=== PATIENT | male | born 1965 | race Caucasian/White ===

== ENCOUNTER → 2024-09-19 | Day surgery (SDC) | payer MEDICARE ==
[2024-09-12 09:35] LABS: BASOPHILS % 0.6 % (0.0-1.0); EOSINOPHILS % 3.2 % (0.0-6.0); LYMPHOCYTES % 17.1 % (18.0-39.1); MONOCYTES % 7.3 % (4.4-11.3); NEUTROPHILS % 71.6 % (38.7-80.0); RED CELL DISTRIBUTION WIDTH 13.2 % (11.7-14.4)
[~2024-09-19] MED LIST: AMIODARONE HCL200 MG PO; ASPIRIN81 MG PO; GLUCOSAMINE1000 MG; KETAMINE HCL INJ 50 MG/ML 10 ML VIAL ONE; LIPITOR10 MG PO; LIPITOR20 MG PO; LISINOPRIL10 MG PO; METFORMIN HCL500 MG PO; METOPROLOL TART50 MG PO; MULTI-VITAMIN1 EACH PO; NOREPINEPHRINE 8 MG/D5W 250 ML 250 ML ONE; PHENYLEPHRINE HCL 1% 10 MG/ML VIAL ONE; PROPOFOL IV EMULSION 10 MG/ML 20 ML VIAL ONE; PROPOFOL IV EMULSION 50 ML IV ONE; SODIUM CHLORIDE 0.9% 100 ML ONE; SUCCINYLCHOLINE CHLORIDE 20 MG/ML 10ML VIAL ONE; WARFARIN SODIU2.5 MG PO
[2024-09-19] MEDS: LACTATED RINGER'S 1,000 ML ONE (06:47)
[2024-09-19 08:11] LABS: INR 0.99
[2024-09-19 09:59] VITALS: TEMP 97.1
[2024-09-19 10:20] VITALS: BP 107/70; PULSE 60; RESP 18; O2SAT 97
== END | disposition home or self-care (01) ==
LOC: OR 06:12
PROVIDERS: ATTEND Internal Medicine Gastroenterology
DX: Z12.11 Encounter for screening for malignant neoplasm of colon (principal); K57.30 Diverticulosis of large intestine without perforation or abscess without bleeding; K64.8 Other hemorrhoids; I11.0 Hypertensive heart disease with heart failure; I50.9 Heart failure, unspecified; I25.10 Atherosclerotic heart disease of native coronary artery without angina pectoris; E11.9 Type 2 diabetes mellitus without complications; E78.00 Pure hypercholesterolemia, unspecified; I25.2 Old myocardial infarction; Z95.810 Presence of automatic (implantable) cardiac defibrillator; Z83.719 Family history of colon polyps, unspecified; Z79.82 Long term (current) use of aspirin; Z79.84 Long term (current) use of oral hypoglycemic drugs; Z79.01 Long term (current) use of anticoagulants; Z01.810 Encounter for preprocedural cardiovascular examination; Z01.812 Encounter for preprocedural laboratory examination
CPT/HCPCS: 36415 ×2; 45378; 82948; 85025; 85610; 85730; 93005; J0330; J2371; J2704; J7050; J7121